=== PATIENT | male | born 1995 | race Hispanic/Latino ===

== ENCOUNTER 2016-09-24 04:07 | Emergency (ER) | payer BC ==
[2016-09-24 04:10] VITALS: BMI 32.1
[2016-09-24 04:21] VITALS: RESP 17; O2SAT 100
--- NOTE | 2016-09-24 04:44 | ED PDOC ---
Arrival/HPI - General Chief Complaint: ENT Problem Time Seen by Provider: 09/24/16 04:26 Historian: Patient - History of Present Illness Narrative History of Present Illness (Text): 09/24/16 04:40 Isael Mo is a 21 year old male, whose past medical history includes asthma , who presents to the ED complaining of sore throat. Patient state he woke up this morning with a sore throat and associated difficulty swallowing. Patient notes he feels a lump sensation in his throat. Patient denies any fever, chills , chest pain, shortness of breath, nausea, vomiting, diarrhea, urinary symptoms , back pain, neck pain, headache, dizziness, or any other complaints. Time/Duration: Other (this morning) Symptom Onset: Gradual Symptom Course: Unchanged Activities at Onset: Rest, Light, Sleeping Context: Home Past Medical History - Provider Review Nursing Documentation Reviewed: Yes - Past History Past History: No Previous - Infectious Disease Hx of Infectious Diseases: None - Tetanus Immunization Tetanus Immunization: Up to Date - Past Medical History Past Medical History: No Previous - Psychiatric Hx Depression: No Hx Emotional Abuse: No Hx Physical Abuse: No Hx Substance Use: Yes - Past Surgical History Past Surgical History: No Previous - Surgical History Hx Orthopedic Surgery: Yes (left pinky fx) - Anesthesia Hx Anesthesia: Yes Hx Anesthesia Reactions: No Hx Malignant Hyperthermia: No - Suicidal Assessment Feels Threatened In Home Enviroment: No Family/Social History - Physician Review Nursing Documentation Reviewed: Yes Family/Social History: No Known Family HX Smoking Status: Light Smoker < 10 Cigarettes Daily Hx Alcohol Use: Yes Frequency of alcohol use: Socially Hx Substance Use: Yes Substance used: Marijuana Hx Substance Use Treatment: No Allergies/Home Meds Allergies/Adverse Reactions: Allergies No Known Allergies Allergy (Verified 12/15/14 14:15) Review of Systems - Physician Review All systems were reviewed & negative as marked: Yes - Review of Systems Constitutional: Normal. absent: Fevers Eyes: Normal ENT: Sore Throat Respiratory: Normal. absent: SOB, Cough Cardiovascular: Normal. absent: Chest Pain Gastrointestinal: Normal. absent: Abdominal Pain, Diarrhea, Nausea, Vomiting Genitourinary Male: Normal. absent: Dysuria, Frequency, Hematuria, Urinary Output Changes Musculoskeletal: Normal. absent: Back Pain, Neck Pain Skin: Normal. absent: Rash Neurological: Normal. absent: Headache, Dizziness Endocrine: Normal Hemo/Lymphatic: Normal Psychiatric: Normal Physical Exam Vital Signs Reviewed: Yes Vital Signs Temp Pulse Resp BP Pulse Ox 09/24/16 05:25 98 F 58 L 17 137/71 100 09/24/16 04:20 97.8 F 60 17 128/71 100 Temperature: Afebrile Blood Pressure: Normal Pulse: Regular Respiratory Rate: Normal Appearance: Positive for: Well-Appearing, Non-Toxic, Comfortable Pain Distress: None Mental Status: Positive for: Alert and Oriented X 3 - Systems Exam Head: Present: Atraumatic, Normocephalic Pupils: Present: PERRL Extroacular Muscles: Present: EOMI Conjunctiva: Present: Normal Mouth: Present: Moist Mucous Membranes Pharnyx: Present: ERYTHEMA. No: EXUDATE, TONSILS ENLARGED, Peritonsilar Swelling, Uvular Deviation, Muffled/Hoarse Voice, [place], Soft Palate/Uvular Edema Neck: Present: Normal Range of Motion Respiratory/Chest: Present: Clear to Auscultation, Good Air Exchange. No: Respiratory Distress, Accessory Muscle Use Cardiovascular: Present: Regular Rate and Rhythm, Normal S1, S2. No: Murmurs Abdomen: Present: Normal Bowel Sounds. No: Tenderness, Distention, Peritoneal Signs Back: Present: Normal Inspection Upper Extremity: Present: Normal Inspection. No: Cyanosis, Edema Lower Extremity: Present: Normal Inspection. No: Edema Neurological: Present: GCS=15, CN II-XII Intact, Speech Normal Skin: Present: Warm, Dry, Normal Color. No: Rashes Psychiatric: Present: Alert, Oriented x 3, Normal Insight, Normal Concentration Medical Decision Making ED Course and Treatment: 09/24/16 04:40 Impression: 21 year old male complaining of sore throat and difficulty swallowing this morning. Differential Diagnosis include but are not limited to: pharyngitis Plan: -- CT Neck Soft Tissue w/o contrast -- Decadron -- Toradol -- Reassess and disposition Progress Notes: 09/24/16 05:54 Reviewed radiology, CT Neck Soft Tissues shows: No acute findings. Re-evaluation Time: 06:12 Reassessment Condition: Re-examined, Improved - RAD Interpretation Narrative RAD Interpretations (Text): CT Neck Soft Tissues shows: Nasopharynx: Unremarkable. Oropharynx: [place] tonsils appear mildly enlarged. No evidence of abscess. Hypopharynx: Unremarkable. Larynx: Unremarkable. Normal epiglottis. Trachea: Unremarkable. Retropharyngeal space: Unremarkable. Submandibular/parotid glands: Unremarkable. Glands are normal in size. Thyroid: Unremarkable. No enlarged or calcified nodules. Bones/joints: Nonspecific straightening of the normal cervical lordosis is noted with mild reversal of curvature. No acute fracture. Soft tissues: Unremarkable. Vasculature: No acute findings. Lymph nodes: Unremarkable. No lymphadenopathy. Sinuses: Trace paranasal sinus mucosal thickening is present. Lung apices: Unremarkable as visualized. IMPRESSION: No acute findings. Radiology Orders: 09/24/16 04:41 NECK SOFT TISSUE W/O CONTRAST [CT] Stat Seal Mixing Operator: Radiologist - Medication Orders Current Medication Orders: Discontinued Medications Dexamethasone (Decadron Inj) 10 mg IVP STAT STA Stop: 09/24/16 04:42 Last Admin: 09/24/16 04:51 Dose: 10 MG IVP Administration Document 09/24/16 04:51 [facility] (Rec: 09/24/16 04:51 [place] [id number]) Charges for Administration # of IVP Administrations 1 Ketorolac Tromethamine (Toradol) 30 mg IVP ONCE ONE Stop: 09/24/16 04:41 Last Admin: 09/24/16 04:51 Dose: 30 MG IVP Administration Document 09/24/16 04:51 [facility] (Rec: 09/24/16 04:51 [place] [id number]) Charges for Administration # of IVP Administrations 1 Levofloxacin (Levaquin) 500 mg PO STAT STA Stop: 09/24/16 06:14 Last Admin: 09/24/16 06:39 Dose: 500 MG - Scribe Statement The provider has reviewed the documentation as recorded by the Joel Peralta Provider Attestation: All medical record entries made by the Joel were at my direction and personally dictated by me. I have reviewed the chart and agree that the record accurately reflects my personal performance of the history, physical exam, medical decision making, and the department course for this patient. I have also personally directed, reviewed, and agree with the discharge instructions and disposition. Disposition/Present on Arrival - Present on Arrival Any Indicators Present on Arrival: No History of DVT/PE: No History of Uncontrolled Diabetes: No Urinary Catheter: No History of Decub. Ulcer: No History Surgical Site Infection Following: None - Disposition Have Diagnosis and Disposition been Completed?: Yes Diagnosis: Pharyngitis Disposition: HOME/ ROUTINE Disposition Time: 06:12 Condition: GOOD Discharge Instructions (ExitCare): Pharyngitis (ED) Prescriptions: levoFLOXacin [Levaquin] 500 mg PO DAILY #10 tab
[2016-09-24 05:27] VITALS: BP 137/71; PULSE 58; TEMP 98
[2016-09-24] MEDS ORDERED: levoFLOXacin 500 MG TAB PO STA (06:13)
--- NOTE | 2016-09-24 08:24 | CT ---
PROCEDURE: CT NECK WITHOUT CONTRAST HISTORY: sore throat COMPARISON: None. TECHNIQUE: CT of the neck without intravenous contrast. Coronal and sagittal reformats generated. Radiation dose: DLP 424.14 mGy-cm FINDINGS: NASOPHARYNX: Unremarkable. SUPRAHYOID NECK: Unremarkable oropharynx, oral cavity, parapharyngeal space and retropharyngeal space. INFRAHYOID NECK: Unremarkable larynx, hypopharynx, and supraglottic space. Vocal cords intact. MASS: None. GLANDS: Parotid and submandibular glands unremarkable. Normal size thyroid gland, without nodule. LYMPH NODES: Normal. No lymphadenopathy. CERVICAL SPINE: No fracture or focal lesion. OTHER FINDINGS: None. IMPRESSION: Unremarkable non-contrast enhanced CT of the neck. Concordant results (preliminary interpretation) provided by [facility]. Procedure Completed: 04:59. Preliminary ([facility]) Report: Dictated and Authenticated: 05:51. Final Interpretation: 08:23. September 24, 2016.
== END 2016-09-24 06:40 | disposition home or self-care (01) ==
LOC: ED 04:07
DX: J02.9 Acute pharyngitis, unspecified (principal); F17.210 Nicotine dependence, cigarettes, uncomplicated
CPT/HCPCS: 70490; 96374; 96375; 99283; J1100; J1885